=== PATIENT | male | born 1950 | race Caucasian/White ===

== ENCOUNTER → 2016-06-25 | Day surgery (SDC) | payer OTHER ==
[~2016-06-25] MED LIST: BUPIVACAINE HCL PF 0.75% 30 ML VIAL ONE; EPINEPHrine HCL (1:1000) 30 MG/30 ML VIAL ONE; LACTATED RINGER'S 1000 ML INJ 1,000 ML ONE; LIDOCAINE 1.5%/EPINEPHrine 1:200,000 PF SOLN 30 ML AMP ONE; MIDAZOLAM HCL 2 MG/2 ML VIAL ONE; ONDANSETRON HCL 4 MG/2 ML VIAL IV PUSH ONE; PROPOFOL 200 MG/20 ML AMP IV ONE; ceFAZolin 2 GM PREMIX 50 ML ONE
--- NOTE | 2016-06-25 15:44 | MP ---
cc: LUMA MENESES DATE OF SURGERY: June 25, 2015 PREOPERATIVE DIAGNOSIS Left shoulder rotator cuff tendon tear, left shoulder impingement syndrome, left shoulder SLAP labral tear, left shoulder osteoarthritis acromioclavicular joint. POSTOPERATIVE DIAGNOSES Left shoulder rotator cuff tendon tear, left shoulder impingement syndrome, left shoulder SLAP labral tear, left shoulder osteoarthritis acromioclavicular joint. PROCEDURE Left shoulder arthroscopic rotator cuff repair, left shoulder arthroscopic subacromial decompression, left shoulder arthroscopic distal clavicle excision, left shoulder arthroscopic extensive debridement of labral SLAP tear. SURGEON Dr. Luma Meneses. SHIP SURVEYOR MARYAM Mckinney ANESTHESIA General with an interscalene block. ESTIMATED BLOOD LOSS Less than 10 ccs. COMPLICATIONS None. IMPLANTS USED Arthrex. JUSTIFICATION This patient is a 66-year-old male who injured the left shoulder. He has had persistence in the pain and weakness in regards to condition with failed conservative treatment. His clinical exam as well as MRI confirmed the above-named findings. The patient was counseled as to the risks, benefits and alternatives to the above-named proposed surgical procedure and did wish to proceed with surgery. PROCEDURE IN DETAIL A written consent was obtained. The patient was identified by name and interscalene block anesthesia was administered by Dr. Orta from anesthesia. The patient was taken to the operating room where general anesthesia was administered as well as 2 grams of IV Ancef. The patient was carefully turned to a right lateral decubitus position, lateral arm roll was placed, all bony prominences and pressure points were well padded. The patient's neck position was carefully monitored and kept neutral. An arthroscopic arm li was gently applied to the left upper extremity with 10 pounds of traction placed. The left shoulder was then prepped and draped using isopropyl alcohol, Hibiclens solution and DuraPrep solution. After appropriate time-out was performed a standard posterior and anterior glenohumeral arthroscope portal was established. The glenohumeral joint revealed evidence of extensive labral tearing along the anterior, superior and posterior portions. No significant chondromalacia of the glenohumeral joint was noted. An arthroscopic shaver was introduced in the anterior portal and extensive debridement was performed to include the anterior, superior and posterior aspects of the labrum from the 9 o'clock position to the 12 o'clock position, back down to the 3 o'clock position. There was evidence of partial tearing of biceps tendon which was also debrided. Attention was turned to the subacromial space, there was evidence of massive retracted rotator cuff tendon tear involving the entire supraspinatus tendon and portions of the infraspinatus as well. There was evidence of significant impingement with bursitis. An arthroscopic shaver was introduced from lateral portal. A subacromial decompression was performed. The shaver was used to perform extensive bursectomy. The arthroscopic Bur was used to perform acromioplasty and the cautery device was used to release coracoacromial ligament. There was evidence of severe osteoarthritis of the acromioclavicular joint, large impinging osteophytes and bone spurs present. A distal clavicle excision was performed. The Bur was used to perform excision from the lateral portal and subsequently the Bur was placed in the anterior portal and a complete distal clavicle excision was performed to include 1 cm of distal clavicle. The Bur was used to decorticate the greater tuberosity in preparation for rotator cuff tendon repair. The tendon was carefully retracted along the anterior portion and a lysis of adhesions and mobilization of the tendon was performed. At this point two Arthrex 4.75 mm bio swivel lock anchors were inserted along the medial row. The fiber tape from the anchors were then placed through the torn rotator cuff tendon. A 4-0 #2 fiber link suture was placed along the anterior and then a second suture along the posterior portion of the tendon. At this point Arthrex double row speed bridge construct was created with tensioning of sutures and placement of a posterolateral and anterolateral anchor. After insertion of anchors the tear was probed and noted to have good stability and fixation. At the conclusion of the surgical procedure, the arthroscopic portals were closed with 3-0 Prolene suture. Sterile dressing was applied. The patient was placed in a sling and swathe immobilizer. He tolerated the procedure well with no intraoperative complications noted. Sergio Smith, physician certified pharmacist assistant certified was present for the entire procedure to include patient positioning and the procedure itself. The medical necessity of physician certified pharmacist assistant was indicated in this case due to the complexity of the procedure. He assisted with manipulation of the arm and also manipulation of the camera. He assisted with both shuttling of sutures, implantation of anchors for purpose of rotator cuff tendon repair. MD WATSON Carbajal/JUAN /2:02 PM /3:13 PM
== END | disposition home or self-care (01) ==
LOC: ESDC 11:04
PROVIDERS: ATTEND Orthopaedic Surgery Sports Medicine
DX: M75.122 Complete rotator cuff tear or rupture of left shoulder, not specified as traumatic (principal); M75.42 Impingement syndrome of left shoulder; S43.432A Superior glenoid labrum lesion of left shoulder, initial encounter; M19.012 Primary osteoarthritis, left shoulder
CPT/HCPCS: 01630; 01991; 29823; 29824; 29826; 29827; 64417; C1713; J0171; J0690; J2250; J2405; J7120

== ENCOUNTER → 2017-08-18 | Day surgery (SDC) | payer OTHER ==
[~2017-08-18] VITALS: Ht 167.6 cm; Wt 62.2 kg
[~2017-08-18] MED LIST changes: +ACETAMINOPHEN 1000 MG/100 ML 100 ML IV ONE; +ADVA100A INH; +AMPICILLIN-SULBACTAM INJ 3 GM VIAL ONE; +AMPICILLIN/SULBAC 3 GM/NS 100 ML IV PRN; -BUPIVACAINE HCL PF 0.75% 30 ML VIAL ONE; +CART120C PO; +CETI-1 PO; +CHLORHEXIDINE GLUCONATE 2 % 1 PACK (2 CLOTHS) TOPICAL PRN; -EPINEPHrine HCL (1:1000) 30 MG/30 ML VIAL ONE; +FLUT50SP EACH NARE; +LABETALOL HCL 100 MG/20 ML VIAL ONE; -LACTATED RINGER'S 1000 ML INJ 1,000 ML ONE; +LACTATED RINGER'S 1000 ML IV PRN; -LIDOCAINE 1.5%/EPINEPHrine 1:200,000 PF SOLN 30 ML AMP ONE; +METOPROLOL TARTRATE 25 MG TAB PO PRN; +OMEP40CA2 PO; -ONDANSETRON HCL 4 MG/2 ML VIAL IV PUSH ONE; +POVIDONE IODINE 5% (ANTISEPSIS KIT) 4 APPLICATIONS EACH NARE PRN; -PROPOFOL 200 MG/20 ML AMP IV ONE; +SODIUM CHLORID 0.9% 500 ML IV PRN; +SODIUM CHLORIDE 0.9% INJ 100 ML ONE; -ceFAZolin 2 GM PREMIX 50 ML ONE
[2017-08-18] MEDS: OXYMETAZOLINE HCL 0.05% 15 ML NASAL SPRAY ONE ×2 (08:09→09:29)
[2017-08-18] MEDS: LIDOCAINE 1%/EPINEPHrine 1:100,000 SOLN 30 ML VIAL ONE ×2 (08:10→09:30)
[2017-08-18 11:25] VITALS: BP 154/71; PULSE 61; RESP 16; TEMP 98.1; O2SAT 95
--- NOTE | 2017-09-12 19:28 | MP ---
cc: Hayden Munoz MD DATE OF OPERATION: 08/18/2017 DATE OF OPERATION: 08/18/2017 SURGEON: Hayden Munoz MD PREOPERATIVE DIAGNOSES: 1. Nasal airway obstruction. 2. Nasal septal deviation. 3. Chronic pansinusitis. POSTOPERATIVE DIAGNOSES: 1. Nasal airway obstruction. 2. Nasal septal deviation. 3. Chronic pansinusitis. OPERATION PERFORMED: 1. Open repair of nasal septal fracture. 2. Bilateral submucosal resection of inferior turbinates. 3. Bilateral endoscopic total ethmoidectomy. 4. Bilateral endoscopic maxillary antrostomy with removal of maxillary sinus tissue. 5. Bilateral endoscopic exploration of frontal sinus ducts with balloon sinuplasty. 6. Bilateral endoscopic sphenoidotomy with removal of sphenoid sinus tissue. INDICATION FOR PROCEDURE: The indications are documented in the history and physical. DESCRIPTION OF OPERATION: The patient was taken to OR #2 and placed in the supine position. Following induction of general anesthesia and intubation, the nose was packed bilaterally with cotton pledgets saturated in 0.05% oxymetazoline. The nasal septal mucosa and inferior turbinates were injected with a total of 12 mL of 1% Xylocaine with epinephrine 1:100,000. He was then prepped and draped for surgery. The packing was removed and a hemitransfixion incision was made in the left nasal vestibule. Through this incision, the mucosa of septum was elevated bilaterally as far as the junction of the bony and cartilaginous septum. This revealed the quadrangular cartilage, which showed evidence of old septal fracture with numerous comminuted fracture segments obstructing the airway bilaterally, predominantly on the left. A cumulative area of 2 x 2 cm was removed, preserving 1.5 cm dorsal and caudal struts. This was done in a piecemeal fashion using the caudal elevator and a Westmoreland-Toussaint forceps. The cartilage was removed. The remainder of mucosa was elevated from the bony septum and the maxillary crest. These were removed using Jareth-Toussaint forceps and Harsha septal forceps on the bony septum and the maxillary crest was removed using a 6 mm Virginie chisel. The incision was then closed with a running suture of 4-0 chromic and the mucosal layers of the septum were approximated to each other with a quilting stitch of 4-0 plain gut. The inferior turbinates were removed next, they were fractured out medially and stab incisions were opened along their inferior surfaces. Through these incisions, the submucosal soft tissue was reduced using a curette and preserving the conchal bone. There remnants of the inferior turbinates were then relateralized to the lateral nasal wall. From this point forward, the operation was completed using endoscopic visualization. Using a 0-degree scope, additional injections of lidocaine and epinephrine were made into the attachments of the middle turbinate, as well as the uncinate processes and the anterior and posterior ethmoid cells. The left side then was addressed first, beginning with amputation of the middle turbinate using Thru-Cutting Blakesley forceps and the power microdebrider. This was carried back as far as the posterior extent of the middle turbinate and at this side, it was cauterized using the suction Bovie at 35 hernandez. Next, the uncinate process was taken down with a sickle knife, which exposed the ethmoid bulla. The ethmoid was then bluntly penetrated and was exonerated anteriorly and posteriorly using blunt dissection with Blakesley forceps and the power microdebrider. This was carried back as far as the rostrum of the sphenoid. When this was completed, the maxillary ostium was enlarged using a Stammberger forceps and the power microdebrider. Inflamed tissue and mucus was removed from this sinus cavity using a curved suction and an upbiting Blakesley forceps. The middle turbinate, ethmoid contents and maxillary mucosa were included in the specimen, labeled left sinus contents. Next, the sphenoid sinus was addressed. The ostium was enlarged by probing with a #10 suction and then enlarging with the power microdebrider. Then, using the 0-degree scope, the contents of the sphenoid sinus was removed using Blakesley forceps. This side was then irrigated with chilled saline and was suctioned and then packed with cotton pledgets saturated in oxymetazoline. These remained in place while the right side was operated on in the same fashion, beginning with amputation of the middle turbinate, followed by uncinectomy and exenteration of the anterior and posterior ethmoid cells. The maxillary ostium was enlarged using the Stammberger forceps and blunt dissection. Mucosa in the right maxillary appeared worrisome for possible inverting papilloma and a separate specimen was obtained from this site and submitted for histological examination. This ultimately returned with a diagnosis of chronically inflamed mucosa with no sign of papilloma. A large amount of this mucosa was debrided from this cavity. Next, the right sphenoid sinus ostium was enlarged and the cavity was debrided under endoscopic visualization. This side then also was packed with pledgets saturated in oxymetazoline while the balloon dilation of the frontal ducts was completed. Left side was addressed first. The guidewire was advanced up into the frontal sinus, the balloon then advanced over the wire and inflated superiorly to a pressure of 12 atmospheres and once again at the inferior limit at the junction with the ethmoid cells. This same method was used to dilate the right frontal duct and both sides are verified patent all the way into the frontal sinus following dilation. When this was completed, all the packing was removed, all sinus cavities were irrigated with chilled saline and then the superior half of the nasal vault as well as the sphenoid, maxillary and ethmoid sinuses were filled with Stammberger sinus foam. The inferior one-half of the nose was then packed with 5.5 cm Rapid Rhino packs. Each was inflated with 5 mL of air and the procedure was terminated. The patient was reversed from anesthesia and taken to recovery in good condition. There were no complications. Blood loss was 250 mL. MD LISSETH Deshpande/LION , 04:20 PM , 07:27 PM
== END | disposition home or self-care (01) ==
LOC: PHSDC 07:00
PROVIDERS: ATTEND Otolaryngology
DX: R09.81 Nasal congestion (principal); J34.2 Deviated nasal septum; J32.4 Chronic pansinusitis; R09.82 Postnasal drip; J34.3 Hypertrophy of nasal turbinates; S02.2XXS Fracture of nasal bones, sequela
CPT/HCPCS: 00160; 21337; 30130; 31255; 31267; 31296; 88304; 88305; 88311; J0131; J0295; J2250; J3010; J7120